=== PATIENT | female | born 2000 | race Caucasian/White ===

== ENCOUNTER 2019-10-24 09:17 | Day surgery (SDC) | payer MEDICAID ==
[2019-10-19 14:17] LABS: CLARITY,URINE SLIGHTLY CLOUDY (Clear); COLOR,URINE YELLOW (Yellow); GLUCOSE, URINE NEGATIVE (Neg); KETONES,URINE NEGATIVE (Neg); LEUKOCYTE ESTERASE ,URINE NEGATIVE (Neg); NITRITES, URINE NEGATIVE (Neg); OCCULT BLOOD,URINE NEGATIVE (Neg); PROTEIN,URINE NEGATIVE (Neg); UROBILINOGEN,URINE 0.2 E.U/dL (0.2-1.0)
[2019-10-19 14:18] LABS: BASOPHILS # (AUTO) 0.1 X10'3 (0-0.2); BASOPHILS % (AUTO) 0.7 % (0-1); EOSINOPHILS # (AUTO) 0.2 X10'3 (0-0.9); LYMPHOCYTES # (AUTO) 4.5 X10'3 (1.1-4.8); LYMPHOCYTES % (AUTO) 38.8 % (21-51); MEAN CORPUSCULAR HGB CONC 32.6 g/dL (33.0-36.5); MEAN CORPUSCULAR VOLUME 85.9 FL (78-98); MEAN PLATELET VOLUME 8.8 FL (7.4-10.4); MONOCYTES # (AUTO) 0.9 X10'3 (0-0.9); MONOCYTES % (AUTO) 8.2 % (2-12); NEUTROPHILS # (AUTO) 5.8 X10'3 (1.8-7.7); NEUTROPHILS % (AUTO) 50.3 % (42-75); PRE OP HEMATOCRIT 40.6 % (35.0-45.0); PRE OP HEMOGLOBIN 13.2 g/dL (12.0-16.0); PRE OP PLATELET COUNT 364 X10'3 (140-440); RED BLOOD COUNT 4.72 X10'6 (4.20-5.60); RED CELL DISTRIBUTION WIDTH 13.8 % (11.5-14.5)
[2019-10-19 14:19] LABS: UA COLLECTION TYPE NON-SPECIFIED
[2019-10-19 14:23] LABS: BACTERIA,URINE FEW /HPF (Neg); MUCUS STRANDS FEW /LPF (Neg); RBC,URINE NONE SEEN /HPF (0-2); SQUAMOUS EPITHELIAL CELL,UR MODERATE /LPF (FEW); WBC,URINE 0-4 /HPF (0-4)
[2019-10-19 14:28] LABS: PRE OP PROTIME 10.3 SECONDS (9.0-12.0)
[2019-10-19 14:30] LABS: ALBUMIN 3.8 G/DL (3.4-5.0); ALBUMIN/GLOBULIN RATIO 0.8 (1.1-1.5); ALKALINE PHOSPHATASE 82 IU/L (20-180); BLOOD UREA NITROGEN 11 MG/DL (7-18); BUN/CREATININE RATIO 12.2 (6.6-38.0); CALCIUM 9.2 MG/DL (8.5-10.1); CHLORIDE 102 MMOL/L (99-107); PRE OP ALT 20 U/L (30-65); PRE OP ANION GAP 8 (8-16); PRE OP AST 14 U/L (10-37); PRE OP BILIRUB, TOTAL 0.3 MG/DL (0.0-1.0); PRE OP GLUCOSE 93 MG/DL (70-104); PRE OP SODIUM 137 MMOL/L (135-145); TOTAL CARBON DIOXIDE 27.3 MMOL/L (24-32); TOTAL PROTEIN 8.3 G/DL (6.4-8.2); eGFR 81 ML/MIN
[2019-10-19 14:31] LABS: PRE OP POTASSIUM 3.3 MMOL/L (3.4-5.1)
[~2019-10-24] VITALS: Ht 170.2 cm; Wt 131.5 kg
[~2019-10-24 09:17] MED LIST: NO HOME MEDS; ceFOXitin sod/dextrose 2g/50ml 50 ML IV ONE; famotidine 20mg tablet PO ONE; ringers solution, lacted 1,000 ML IV SCH
[2019-10-24 09:35] VITALS: BP 146/84
[2019-10-24 11:26] VITALS: BP 146/84
[2019-10-24] MEDS ORDERED: BUPIVAcaine/PF 2.5 mg/ml (0.25%) 30ml vial ONE (12:25)
[2019-10-24] MEDS ORDERED: ringers solution, lacted 1,000 ML IV SCH (13:47)
[2019-10-24] MEDS ORDERED: proCHLORperazine 10 MG/2 ml inj IV PRN (13:50)
[2019-10-24] MEDS ORDERED: morphine 2 MG/ML inj. syringe IV PRN (13:50)
[2019-10-24] MEDS ORDERED: ondansetron/PF 4mg/2ml inj IV PRN (13:50)
[2019-10-24] MEDS ORDERED: morphine 4 MG/ML inj SYRINge IV PRN (13:50)
[2019-10-24] MEDS ORDERED: meperidine/PF 25mg/ml syringe IV PRN ×2 (13:50)
[2019-10-24] MEDS ORDERED: sevoflurane 250ml liquid IH ONE (14:05)
[2019-10-24] MEDS ORDERED: succinylcholine 20mg/ml inj IV ONE (14:05)
[2019-10-24] MEDS ORDERED: midazolam 2 mg/2 ml injection ONE (14:09)
[2019-10-24] MEDS ORDERED: fentaNYL /PF 50mcg/ml 5ml ampule ONE (14:11)
[2019-10-24] MEDS ORDERED: rocuronium 10mg/ml inj IV ONE (15:07)
[2019-10-24] MEDS ORDERED: neostigmine methylsulfate 1 MG/ML 10ml vial ONE (15:07)
[2019-10-24] MEDS ORDERED: dexamethasone sod phosphate 4mg/ml inj. ONE (15:07)
[2019-10-24] MEDS ORDERED: ondansetron/PF 4mg/2ml inj ONE (15:07)
[2019-10-24] MEDS ORDERED: glycopyrrolate 0.2mg/ml inj ONE (15:07)
[2019-10-24] MEDS ORDERED: LIDOcaine 2% (20mg/ml) 5ml vial ONE (15:07)
[2019-10-24] MEDS ORDERED: propofol inj 20 ML IV ONE (15:07)
[2019-10-24 15:08] VITALS: BP 131/71
--- NOTE | 2019-10-24 15:08 | NUR ---
Received from OR via luna, accompanied by Anesthesiologist Mesha and report given by Anesthesiolgist. VS stable and sats 99% with mask at 10L. Lap sites to abdomen with bandaids CDI. Pt responsive to questions but sleepy. 20G right AC present with LR at 100cc/hr. MD states okay to give toraol after bag of fluids finishes infusing. Will continue to monitor patient closely.
[2019-10-24] MEDS ORDERED: ketorolac tromethamine 15mg/ml inj. IV ONE (15:15)
[2019-10-24] MEDS: meperidine/PF 25mg/ml syringe IV PRN ×2 (15:21→15:41)
[2019-10-24] MEDS ORDERED: traMADol 50MG tablet PO ONE (16:40)
--- NOTE | 2019-10-24 17:28 | NUR ---
Pt discharged to vehicle by wheelchair after IV DC'd. Abdomen wounds remain CDI. Pt and mother verbalized understanding of DC instructions. Pt occasionally feeling nauseous and received education on need for movement to move air from surgery in abdomen. They both state comfortable to go home. All belongings returned to patient and mother to corn picker pain meds already ordered by MD office.
== END 2019-10-24 17:28 | disposition home or self-care (01) ==
LOC: PAS 09:17
PROVIDERS: ATTEND Surgery
DX: K80.10 Calculus of gallbladder with chronic cholecystitis without obstruction (principal); Z87.19 Personal history of other diseases of the digestive system; Z79.01 Long term (current) use of anticoagulants; Z11.59 Encounter for screening for other viral diseases; Z79.899 Other long term (current) drug therapy
CPT/HCPCS: 36415; 47562; 80053; 81001; 82948; 85025; 85610; 85730; 93005; J0330; J0694; J1100; J1885; J2001; J2175; J2250; J2405; J2704; J2710; J3010; J3490; J7120; U0003; A4215; A4618; A7000

== ENCOUNTER 2020-09-10 12:41 | Outpatient (CLI) | payer MEDICAID ==
[~2020-09-10 12:41] MED LIST changes: -ceFOXitin sod/dextrose 2g/50ml 50 ML IV ONE; -famotidine 20mg tablet PO ONE; -ringers solution, lacted 1,000 ML IV SCH
== END 2020-09-10 23:59 | disposition home or self-care (01) ==
LOC: CARD DIAG 12:41
DX: I08.8 Other rheumatic multiple valve diseases (principal); O10.012 Pre-existing essential hypertension complicating pregnancy, second trimester; Z3A.00 Weeks of gestation of pregnancy not specified
CPT/HCPCS: 93306